=== PATIENT | male | born 1960 | race Caucasian/White ===

== ENCOUNTER 2019-02-20 19:18 | Emergency (ER) | payer BC, OTHER ==
[~2019-02-20] VITALS: Ht 175.3 cm; Wt 82.0 kg
[2019-02-20] MEDS ORDERED: IBUPROFEN 600MG TABLET PO ONE (20:00)
[2019-02-20] MEDS ORDERED: BACITRACIN ZINC OINT UDPKT TOP ONE (20:00)
[2019-02-20] MEDS ORDERED: BACITRACIN 15GM TUBE TOP ONE (20:30)
[2019-02-20 21:32] VITALS: BP 149/79
== END 2019-02-20 21:33 | disposition home or self-care (01) ==
LOC: ER 19:18
DX: S40.012A Contusion of left shoulder, initial encounter (principal); V49.49XA Driver injured in collision with other motor vehicles in traffic accident, initial encounter; Y93.89 Activity, other specified; Y92.89 Other specified places as the place of occurrence of the external cause; Y99.8 Other external cause status
CPT/HCPCS: 73000; 73030; 99284